=== PATIENT | female | born 1995 | race Two or more races ===

== ENCOUNTER 2018-11-24 09:40 | Emergency (ER) | payer OTHER ==
[2018-11-24 10:02] VITALS: BMI 23.4
[2018-11-24] MEDS ORDERED: ALBUTEROL SO4 2.5/IPRATROPIUM 0.5 INH SOL 3 ML VIAL.NEB. NEB ONE ×3 (10:40→12:08)
--- NOTE | 2018-11-24 10:58 | PDOC ---
History of Present Illness - General Chief Complaint: Cold Symptoms Stated Complaint: COUGH Time Seen by Provider: 11/24/18 10:50 Past History - Past Medical History Allergies/Adverse Reactions: Allergies Allergy/AdvReac Type Severity Reaction Status Date / Time No Known Allergies Allergy Verified 11/24/18 09:49 Home Medications: Ambulatory Orders Albuterol Sulfate Inhaler - [Ventolin HFA Inhaler -] 1 - 2 inh PO Q4H #1 inhaler 11/24/18 Azithromycin [Zithromax 250mg Tablets -] 250 mg PO UTDICT #6 tab 11/24/18 Methylprednisolone [Medrol Dose Farzad] 4 mg PO ASDIR #21 tablet 11/24/18 COPD: No CHF: No DVT: No - Immunization History Immunization Up to Date: Yes - Suicide/Smoking/Psychosocial Hx Smoking History: Never smoked Hx Alcohol Use: No Drug/Substance Use Hx: No *Physical Exam - Vital Signs Last Vital Signs Temp Pulse Resp BP Pulse Ox 98.1 F 106 H 17 100/55 L 91 L 11/24/18 09:49 11/24/18 09:49 11/24/18 09:49 11/24/18 09:49 11/24/18 09:49 ED Treatment Course - LABORATORY CBC & Chemistry Diagram: 11/24/18 11:05 11/24/18 11:05 *DC/Admit/Observation/Transfer Diagnosis at time of Disposition: Bronchitis - Discharge Dispostion Disposition: HOME Condition at time of disposition: Stable Decision to Admit order: No - Referrals Referrals: Eric Palumbo MD, MD [Staff Physician] - Tim Whitmore MD [Staff Physician] - - Patient Instructions Printed Discharge Instructions: DI for Acute Bronchitis Additional Instructions: You were evaluated for shortness of breath today. Your lab work shows a slight infection. Your chest x-ray and CAT scan of her chest did not show a pneumonia or blood clot. Most likely have a viral bronchitis Please take the medication as directed Follow-up with both the range aid and primary care doctors that were provided to you. Return to the ER for increased shortness of breath, difficulty breathing, chest pain, lightheadedness, dizziness, or if you have any changes in your symptoms. - Post Discharge Activity Forms/Work/School Notes: Back to Work
[2018-11-24] MEDS ORDERED: SODIUM CHLORIDE 1,000 ML IV STA (11:14)
[2018-11-24] MEDS ORDERED: methylPREDNISolone NA SUCC 125 MG/2 ML VIAL IVPUSH ONE (11:15)
[2018-11-24] MEDS ORDERED: ACETAMINOPHEN 1000 MG/100 ML VIAL (NON FORMULARY) IVPB ONE (11:15)
[2018-11-24] MEDS ORDERED: ACETAMINOPHEN INJECTION 100 ML IVPB ONE (11:31)
[2018-11-24] MEDS ORDERED: methylPREDNISolone NA SUCC 125 MG/2 ML VIAL ONE (11:32)
[2018-11-24 11:33] LABS: BASO % 0.3 % (0-2.0); EOS % 2.6 % (0-4.5); HEMATOCRIT 36.4 % (32.4-45.2); HEMOGLOBIN 12.4 GM/dL (10.7-15.3); LYMPH % 8.2 % (8-40); MCH 29.1 pg (25.7-33.7); MEAN CELL VOLUME 85.6 fl (80-96); NEUT % 82.9 % (42.8-82.8); PLATELET COUNT 245 K/MM3 (134-434); RBC 4.25 M/mm3 (3.60-5.2); RDW 13.5 % (11.6-15.6); WHITE BLOOD COUNT 11.2 K/mm3 (4.0-10.0)
[2018-11-24] MEDS: ALBUTEROL SO4 2.5/IPRATROPIUM 0.5 INH SOL 3 ML VIAL.NEB. NEB SCH ×4 (11:53→14:25)
[2018-11-24 11:57] LABS: INR 1.06 (0.83-1.09); PROTHROMBIN TIME (PATIENT) 12.5 SEC (9.7-13.0)
[2018-11-24 11:59] LABS: ALBUMIN 4.3 g/dl (3.4-5.0); ALK PHOS 56 U/L (45-117); ANION GAP 6 MMOL/L (8-16); BILIRUBIN,TOTAL 0.4 mg/dL (0.2-1); BLOOD UREA NITROGEN 7 mg/dL (7-18); CALCIUM 8.6 mg/dL (8.5-10.1); CHLORIDE 108 mmol/L (98-107); CO2 26 mmol/L (21-32); CREATININE 0.7 mg/dL (0.55-1.3); GLUCOSE,RANDOM 104 mg/dL (74-106); SGOT/AST 20 U/L (15-37); SGPT/ALT 17 U/L (13-61); SODIUM 140 mmol/L (136-145); TOT PROT 7.8 g/dl (6.4-8.2)
[2018-11-24 18:00] VITALS: BP 110/64; PULSE 108; TEMP 98.7
--- NOTE | 2018-11-25 14:31 | EKG ---
Test Reason : Blood Pressure : / mmHG Vent. Rate : 085 BPM Atrial Rate : 085 BPM P-R Int : 136 ms QRS Dur : 082 ms QT Int : 376 ms P-R-T Axes : 078 089 067 degrees QTc Int : 447 ms NORMAL SINUS RHYTHM LEFT ATRIAL ENLARGEMENT BORDERLINE ECG NO PREVIOUS ECGS AVAILABLE Confirmed by MD GERARD, DELFIN ([id number]) on 11/25/2018 2:30:57 PM Referred By: Confirmed By:DELFIN GEE MD
== END 2018-11-24 19:49 | disposition home or self-care (01) ==
LOC: JER 09:40 → JERFT 09:40 → JER 19:49
PROC: 3E0F7GC Introduction of Other Therapeutic Substance into Respiratory Tract, Via Natural or Artificial Opening (ICD-10-PCS; principal; 2018-11-24)
PROC: 3E0337Z Introduction of Electrolytic and Water Balance Substance into Peripheral Vein, Percutaneous Approach (ICD-10-PCS; 2018-11-24)
PROC: 3E033NZ Introduction of Analgesics, Hypnotics, Sedatives into Peripheral Vein, Percutaneous Approach (ICD-10-PCS; 2018-11-24)
PROC: 3E0333Z Introduction of Anti-inflammatory into Peripheral Vein, Percutaneous Approach (ICD-10-PCS; 2018-11-24)
DX: J20.9 Acute bronchitis, unspecified (principal)
CPT/HCPCS: 36415; 71046-TC-FY; 71275-TC; 80053; 84703; 85025; 85379; 85610; 87804; 93005; 93010; 94640; 96361; 96374; 96375; 99282-25; J0131; J7030

== ENCOUNTER 2019-05-25 20:37 | Emergency (ER) | payer OTHER ==
--- NOTE | 2019-05-25 20:42 | PDOC ---
Rapid Medical Evaluation Time Seen by Provider: 05/25/19 20:39 Medical Evaluation: Allergies Allergy/AdvReac Type Severity Reaction Status Date / Time No Known Allergies Allergy Verified 11/24/18 09:49 05/25/19 20:39 HPI: Fever and Body aches x1 day PE:no gross deficits ORDERS: Flu swab Discharge Disposition - Diagnosis Malaise and fatigue - Referrals - Patient Instructions - Post Discharge Activity
[2019-05-25 20:43] VITALS: BMI 19.8
--- NOTE | 2019-05-25 21:23 | PDOC ---
*Physical Exam - Vital Signs Last Vital Signs Temp Pulse Resp BP Pulse Ox 98.7 F 89 98 H 106/71 98 05/25/19 20:39 05/25/19 20:39 05/25/19 20:39 05/25/19 20:39 05/25/19 20:39 ED Treatment Course - LABORATORY CBC & Chemistry Diagram: 05/25/19 22:05 05/25/19 22:05 Medical Decision Making - Medical Decision Making 05/25/19 21:23 Patient seen by the advanced practice provider under my direct supervision. Ancillary testing reviewed as necessary. I agree with plan as outlined by the advanced practice provider. Discharge - Discharge Information Problems reviewed: Yes Clinical Impression/Diagnosis: Viral illness Headache Qualifiers: Headache type: unspecified Headache chronicity pattern: acute headache Intractability: not intractable Qualified Code(s): R51 - Headache Condition: Good Disposition: HOME - Follow up/Referral - Patient Discharge Instructions Patient Printed Discharge Instructions: DI for Common Cold Additional Instructions: Drink plenty of fluids start a BRAT ( bananas, rice apples toast) Take Tylenol every 4-6 hours as needed for body aches and fever. follow up with your doctor as soon as possible. return to the ER if symptoms worsen - Post Discharge Activity Work/Back to School Note: Back to Work
[2019-05-25] MEDS ORDERED: ACETAMINOPHEN 1000 MG/100 ML VIAL (NON FORMULARY) IVPB ONE (21:37)
[2019-05-25] MEDS ORDERED: METOCLOPRAMIDE HCL INJECTION 10 MG/2 ML VIAL IVPB ONE (21:37)
[2019-05-25] MEDS ORDERED: SODIUM CHLORIDE 1,000 ML IV STA (21:37)
--- NOTE | 2019-05-25 21:42 | PDOC ---
History of Present Illness - General Chief Complaint: Cold Symptoms Stated Complaint: HEADECHE/FEVER Time Seen by Provider: 05/25/19 20:39 History Source: Patient - History of Present Illness Initial Comments: 05/25/19 21:34 23 year old female with sneezing, runny nose, throat pain, dizziness, fever x1 day 100.3. + nausea, diarrhea, bodyaches.denies recent travel. no sick contacts. PMHX: headache Past History - Past Medical History Allergies/Adverse Reactions: Allergies Allergy/AdvReac Type Severity Reaction Status Date / Time No Known Allergies Allergy Verified 11/24/18 09:49 Home Medications: Ambulatory Orders Albuterol Sulfate Inhaler - [Ventolin HFA Inhaler -] 1 - 2 inh PO Q4H #1 inhaler 11/24/18 Azithromycin [Zithromax 250mg Tablets -] 250 mg PO UTDICT #6 tab 11/24/18 Methylprednisolone [Medrol Dose Farzad] 4 mg PO ASDIR #21 tablet 11/24/18 COPD: No CHF: No DVT: No - Immunization History Immunization Up to Date: Yes - Psycho Social/Smoking Cessation Hx Smoking History: Never smoked Hx Alcohol Use: No Drug/Substance Use Hx: No Review of Systems - Review of Systems Able to Perform ROS?: Yes Is the patient limited Romansh proficient: No Constitutional: Yes: Fever HEENTM: Yes: Nose Congestion, Throat Pain, Other (sneezing) Respiratory: No: Symptoms reported, See HPI, Cough, Orthopnea, Shortness of Breath, SOB with Exertion, SOB at Rest, Stridor, Wheezing, Productive cough, Hemoptysis, Other Cardiac (ROS): No: Symptoms Reported, See HPI, Chest Pain, Edema, Irregular Heart Rate, Lightheadedness, Palpitations, Syncope, Chest Tightness, Other ABD/GI: Yes: Diarrhea, Nausea, Vomiting. No: Symptoms Reported, See HPI, Abdominal Distended, Abd. Pain w/ defecation, Blood Streaked Bowels, Constipated , Difficulty Swallowing, Poor Appetite, Poor Fluid Intake, Rectal Bleeding, Indigestion, Abdominal cramping, Tarry Stools, Other : No: Symptoms Reported, See HPI, Burning, Dysuria, Discharge, Frequency, Flank Pain, Hematuria, Incontinence, Pain, Urgency, Testicular Mass, Testicular Swelling, Lesions, Testicular Pain, Other *Physical Exam - Vital Signs Last Vital Signs Temp Pulse Resp BP Pulse Ox 98.7 F 89 98 H 106/71 98 05/25/19 20:39 05/25/19 20:39 05/25/19 20:39 05/25/19 20:39 05/25/19 20:39 - Physical Exam General Appearance: Yes: Appropriately Dressed HEENT: positive: Tonsillar Erythema, Nasal Congestion Neck: positive: Lymphadenopathy (R), Lymphadenopathy (L) Respiratory/Chest: positive: Lungs Clear, Normal Breath Sounds Cardiovascular: positive: Regular Rhythm, Regular Rate Gastrointestinal/Abdominal: positive: Normal Bowel Sounds, Soft. negative: Tender Extremity: positive: Normal Capillary Refill, Normal Inspection, Normal Range of Motion Integumentary: positive: Normal Color, Warm Neurologic: positive: Fully Oriented, Alert ED Treatment Course - LABORATORY CBC & Chemistry Diagram: 05/25/19 22:05 05/25/19 22:05 ED Progress Note - Progress Note Progress Note: 05/25/19 22:22 A: viral illness; throat pain; headache P: labs IVF reglan tylenol Medical Decision Making - Medical Decision Making 05/25/19 23:30 patient tolerated PO. Strict return precautions reviewed with patient. Will give patient a referral for neurology for chronic headaches. Patient does not have a headache right now. Discharge - Discharge Information Problems reviewed: Yes Clinical Impression/Diagnosis: Viral illness Headache Qualifiers: Headache type: unspecified Headache chronicity pattern: acute headache Intractability: not intractable Qualified Code(s): R51 - Headache Disposition: HOME - Follow up/Referral - Patient Discharge Instructions Patient Printed Discharge Instructions: DI for Common Cold Additional Instructions: Drink plenty of fluids start a BRAT ( bananas, rice apples toast) Take Tylenol every 4-6 hours as needed for body aches and fever. follow up with your doctor as soon as possible. return to the ER if symptoms worsen - Post Discharge Activity Work/Back to School Note: Back to Work
[2019-05-25 22:15] LABS: BASO % 0.9 % (0-2.0); EOS % 2.1 % (0-4.5); HEMATOCRIT 38.4 % (32.4-45.2); HEMOGLOBIN 12.7 GM/dL (10.7-15.3); LYMPH % 24.3 % (8-40); MCH 28.4 pg (25.7-33.7); MEAN PLT VOLUME 8.7 fl (7.5-11.1); MONO % 5.7 % (3.8-10.2); PLATELET COUNT 252 K/MM3 (134-434); RBC 4.46 M/mm3 (3.60-5.2); RDW 13.8 % (11.6-15.6); WHITE BLOOD COUNT 10.8 K/mm3 (4.0-10.0)
[2019-05-25] MEDS ORDERED: ACETAMINOPHEN INJECTION 100 ML IVPB ONE (22:15)
[2019-05-25] MEDS ORDERED: METOCLOPRAMIDE HCL INJECTION 10 MG/2 ML VIAL ONE (22:15)
[2019-05-25 22:19] LABS: URINE APPEARANCE CLEAR; URINE BILIRUBIN NEGATIVE (NEGATIVE); URINE COLOR YELLOW; URINE GLUCOSE (UA) NEGATIVE (NEGATIVE); URINE KETONE 1+ (NEGATIVE); URINE LEUK ESTERASE NEGATIVE (NEGATIVE); URINE NITRITE NEGATIVE (NEGATIVE); URINE PROTEIN NEGATIVE (NEGATIVE)
[2019-05-25 22:44] LABS: ALBUMIN 4.6 g/dl (3.4-5.0); BILIRUBIN,TOTAL 0.6 mg/dL (0.2-1); BLOOD UREA NITROGEN 11.1 mg/dL (7-18); CALCIUM 9.2 mg/dL (8.5-10.1); CREATININE 0.8 mg/dL (0.55-1.3); POTASSIUM 3.6 mmol/L (3.5-5.1); TOT PROT 7.9 g/dl (6.4-8.2)
[2019-05-26 00:34] VITALS: BP 87/47; PULSE 70; TEMP 98
== END 2019-05-26 00:28 | disposition home or self-care (01) ==
LOC: JER 20:37
PROC: 3E033GC Introduction of Other Therapeutic Substance into Peripheral Vein, Percutaneous Approach (ICD-10-PCS; principal; 2019-05-25)
PROC: 3E033NZ Introduction of Analgesics, Hypnotics, Sedatives into Peripheral Vein, Percutaneous Approach (ICD-10-PCS; 2019-05-25)
DX: B34.9 Viral infection, unspecified (principal); R51 Headache
CPT/HCPCS: 36415; 80053; 81003; 84703; 85025; 87070; 87804; 87880; 96374; 96375; 99283-25; J0131; J7030